=== PATIENT | female | born 1975 | race Caucasian/White ===

== ENCOUNTER 2024-01-08 17:07 | Emergency (ER) | payer OTHER ==
[2024-01-08 17:18] VITALS: RESP 18; TEMP 97.8; O2SAT 98
--- NOTE | 2024-01-08 17:40 | ERPHSYRPT ---
- History of Present Illness Source: patient, EMS Exam Limitations: no limitations Patient Subjective Stated Complaint: PT states "I had vericose vein removal surgery at noon in [place] at noon. at 3 45 I went out to check on the horses and I was walking and felt a squishing in my bandageing. I am not sure if I popped a stitch or something. Triage Nursing Assessment: PT presented alert and oriented X 3, skin pwd. pt able to speak in clear full sentences. Pt has bilateral leg wrapped with blood soaked bandages noted to left leg. Physician History: 48-year-old female who had bilateral vein stripping at another facility earlier today presents per EMS after the left upper thigh incision site started to bleed. Patient walked to her barn to check on her horses and one of her left thigh incision started to bleed. EMS arrived and held pressure which stopped the bleeding. Patient was not bleeding upon ER arrival. Timing/Duration: resolved prior to arrival Modifying Factors: Improves With: nothing Associated Symptoms: denies symptoms Allergies/Adverse Reactions: hydromorphone [From Dilaudid] Allergy (Intermediate, Verified 01/08/24 17:18) Rash Home Medications: Omeprazole 40 mg PO DAILY 01/08/24 [History] Hx Tetanus, Diphtheria Vaccination/Date Given: No Hx Influenza Vaccination/Date Given: No Hx Pneumococcal Vaccination/Date Given: No Immunizations Up to Date: No Travel Risk - International Travel Have you traveled outside of the country in past 3 weeks: No - Emerging Infectious Disease Are you exhibiting symptoms associated with any current EIDs: No - Review of Systems Constitutional: No Symptoms Eyes: No Symptoms Ears, Nose, & Throat: No Symptoms Respiratory: No Symptoms Cardiac: No Symptoms Abdominal/Gastrointestinal: No Symptoms Genitourinary Symptoms: No Symptoms Skin: No Symptoms Neurological: No Symptoms Psychological: No Symptoms Endocrine: No Symptoms Hematologic/Lymphatic: No Symptoms Immunological/Allergic: No Symptoms - Past Medical History Pertinent Past Medical History: Yes GI Medical History: GERD - Past Surgical History Past Surgical History: Yes Female Surgical History: Section Other Surgical History: vericose vein meds - Female History Hx Last Menstrual Period: ablasion Hx Now: No - Social History Smoking Status: Current every day smoker How long have you smoked: years Exposure to second hand smoke: Yes Drug Use: none Patient Lives Alone: No - Social Determinants of Health Will the patient participate in the screening: Declined to provide - Nursing Vital Signs Nursing Vital Signs: Initial Vital Signs Temperature 97.8 F 01/08/24 17:09 Respiratory Rate 18 01/08/24 17:09 O2 Sat by Pulse Oximetry 98 01/08/24 17:09 Pain Scale Pain Intensity 3 Within normal limits - Physical Exam General Appearance: no apparent distress Eye Exam: PERRL/EOMI Ears, Nose, Throat Exam: normal ENT inspection Neck Exam: normal inspection, non-tender, supple Respiratory Exam: normal breath sounds, lungs clear, airway intact Cardiovascular Exam: regular rate/rhythm, normal heart sounds, murmur, capillary refill <2 sec Gastrointestinal/Abdomen Exam: soft Back Exam: normal inspection, normal range of motion Extremity Exam: other ( left superior thigh with multiple stapled incisions without any active bleeding, good distal capillary return is) Neurologic Exam: alert, oriented x 3, cooperative, procedure analyst II-XII nml as tested, normal mood/affect, nml cerebellar function, nml station & gait, sensation nml, No motor deficits, No sensory deficit Skin Exam: normal color, warm, dry Lymphatic Exam: No adenopathy SpO2 Interpretation: normal SpO2: 98 O2 Delivery: Room Air - Course Nursing assessment & vital signs reviewed: Yes Ordered Tests: Medication Summary Discontinued Medications Generic Name Dose Route Start Last Admin Trade Name Whit PRN Reason Stop Dose Admin Lidocaine HCl Confirm 01/08/24 18:33 Lidocaine Hcl 1% 20 Ml Mdv 20 Ml Ml Administered 01/08/24 18:34 Dose 5 ml .ROUTE .[employer] ONE - Progress Progress Note: 01/08/24 20:59 Nursing note and vital signs reviewed. No food or housing insecurity noted. After small observational period, 2 small punctate areas at excision sites started to bleed. anesthesia with 1% lidocaine without epinephrine, and the areas were oversewn with 3.0 Ethilon x 1 and 3.0 Ethilon x 3 with good hemostasis. There were no complications. Wounds bandaged per nursing/neurovascular tact post application. Patient advised to continue Dr. Chappell's Postop instructions. Counseled pt/family regarding: diagnosis, need for follow-up Medical Desision Making - Independent Historian Additional History obtained from: Spouse - Departure Departure Disposition: Home Clinical Impression: Postoperative bleeding from incision Condition: Stable Critical Care Time: No Referrals: NORIS ROJAS [ACTIVE STAFF] - Follow up/PCP as directed Instructions: Wound Care (DC) Additional Instructions: Continue with Dr. Chappell's Postop instruction Return to ER as needed
[2024-01-08] MEDS ORDERED: XYLOCAINE 1% HCL 20 ML MDV ONE (18:33)
[2024-01-08 18:47] VITALS: BP 134/70; PULSE 79
== END 2024-01-08 19:40 | disposition home or self-care (01) ==
LOC: ED 17:07
DX: L76.22 Postprocedural hemorrhage of skin and subcutaneous tissue following other procedure (principal); Z72.0 Tobacco use
CPT/HCPCS: 99282